=== PATIENT | male | born 1955 | race Caucasian/White ===

== ENCOUNTER 2018-01-06 19:43 | Observation (INO) | payer OTHER ==
[~2018-01-06] VITALS: Ht 182.9 cm; Wt 98.8 kg
[2018-01-06 20:01] LABS: BASOPHIL (%) 0.9 % (0-1); BASOPHIL COUNT 0.1 K/uL (0-0.1); EOSINOPHIL (%) 1.1 % (0-5); EOSINOPHIL COUNT 0.1 K/uL (0-0.3); HEMATOCRIT 36.8 % (38.0-50.0); HEMOGLOBIN 11.8 G/DL (12.5-16.6); IMMATURE GRANULOCYTE (%) 0.4 % (0.0-0.7); LYMPHOCYTE (%) 30.4 % (15-42); LYMPHOCYTE COUNT 1.7 K/uL (1.0-2.8); MCH 27.5 PG (29.0-34.0); MCHC 32.1 G/DL (30.0-36.0); MCV 85.8 FL (86-99); MONOCYTE (%) 13.2 % (3-12); MONOCYTE COUNT 0.7 K/uL (0-0.8); PLATELET COUNT 287 K/uL (156-360); RBC DIS.WIDTH-SD 59.7 % (39-53); RED BLOOD COUNT 4.29 M/uL (4.00-5.50); WHITE BLOOD COUNT 5.6 K/uL (4.1-10.2)
[2018-01-06 20:11] LABS: AMYLASE 73 IU/L (1-118); CHLORIDE 104 mEq/L (99-109); POTASSIUM 3.9 mEq/L (3.7-5.4); SODIUM 139 mEq/L (136-147)
[2018-01-06 20:12] LABS: GLUCOSE 118 mg/dL (70-99)
[2018-01-06 20:16] LABS: CREATININE 0.8 mg/dL (0.6-1.3); GFR ESTIMATE (CALCULATED) > 59 mL/min/ (58.99-99999); SERUM ETHYL ALCOHOL 385 mg/dL
[2018-01-06 20:17] LABS: UREA NITROGEN (BUN) 11 mg/dL (9-23)
[2018-01-06 20:19] LABS: LIPASE 61 U/L (1.0-51.0)
[2018-01-06 21:25] LABS: APPEARANCE CLEAR ((CLEAR)); BILIRUBIN NEGATIVE; BLOOD NEGATIVE; COLOR YELLOW ((YELLOW)); GLUCOSE (STRIP) NEGATIVE; KETONES NEGATIVE; LEUKOCYTES NEGATIVE; NITRITE NEGATIVE; PROTEIN (STRIP) NEGATIVE; SPECIFIC GRAVITY 1.006 (1.000-1.030); UCUL ADDED? NO; UROBILINOGEN 0.2 MG/DL (0.2-1.0)
[2018-01-06 21:59] LABS: AMPHETAMINE NEGATIVE (500 ng/mL); BARBITURATES NEGATIVE (200 ng/mL); BENZODIAZEPINES NEGATIVE (150 ng/mL); BUPRENORPHINE NEGATIVE (10 ng/mL); COCAINE NEGATIVE (150 ng/mL); METHADONE NEGATIVE (200 ng/mL); METHAMPHETAMINE NEGATIVE (500 ng/mL); OPIATES (MORPHINE) NEGATIVE (100 ng/mL); OXYCODONE NEGATIVE (100 ng/mL); PHENCYCLIDINE NEGATIVE (25 ng/mL); PROPOXYPHENE NEGATIVE (300 ng/mL); THC CANNABINOIDS NEGATIVE (50 ng/mL); TRICYCLIC ANTIDEPRESSANTS NEGATIVE (300 ng/mL)
[2018-01-06] MEDS ORDERED: LITE COAT ASPI325 M1 PO (23:08)
[2018-01-06] MEDS ORDERED: TYLENOL EXTRA500 MG PO (23:09)
[2018-01-06] MEDS ORDERED: OMEGA 3 500 SO1 EACH PO (23:10)
[2018-01-07 02:23] VITALS: BP 139/80
[2018-01-07 07:26] VITALS: BP 150/84
[2018-01-07] MEDS ORDERED: Thiamine,Vitamin B1 PO (11:59)
[2018-01-07] MEDS ORDERED: BACITRACIN28.4 GM TP (11:59)
[2018-01-07] MEDS ORDERED: THERAGRAN1 TABLET PO (11:59)
[2018-01-07] MEDS ORDERED: FOLIC ACID1 MG PO (11:59)
[2018-01-07 12:12] VITALS: BP 179/98
== END 2018-01-07 14:15 | disposition home or self-care (01) ==
LOC: TRA 19:43 → EDOF 01-07 00:37 → ENRESERV 01-07 00:42 → EDOF 01-07 00:56 → ENRESERV 01-07 01:07 → ENRESERVTM 01-07 01:55 → 4SOUTH 01-07 02:00 → ENPENDDIS 01-07 13:47 → 4SOUTH 01-07 14:15
PROVIDERS: Emergency Medicine
PROC: 3E0234Z Introduction of Serum, Toxoid and Vaccine into Muscle, Percutaneous Approach (ICD-10-PCS; principal; 2018-01-07)
PROC: 0HQ1XZZ Repair Face Skin, External Approach (ICD-10-PCS; principal; 2018-01-07)
DX: F10.129 Alcohol abuse with intoxication, unspecified (principal); Y90.8 Blood alcohol level of 240 mg/100 ml or more; R09.02 Hypoxemia; R00.0 Tachycardia, unspecified; S00.03XA Contusion of scalp, initial encounter; S01.81XA Laceration without foreign body of other part of head, initial encounter; S06.0X9A Concussion with loss of consciousness of unspecified duration, initial encounter; S80.212A Abrasion, left knee, initial encounter; S80.211A Abrasion, right knee, initial encounter; M19.90 Unspecified osteoarthritis, unspecified site; Z87.891 Personal history of nicotine dependence; Z23 Encounter for immunization; V49.88XA Car occupant (driver) (passenger) injured in other specified transport accidents, initial encounter; Y92.410 Unspecified street and highway as the place of occurrence of the external cause
CPT/HCPCS: 70450; 70486; 71260; 72125; 72129; 72132; 74177; 80048; 81003; 82150; 83690; 85025; 86850; 86900; 86901; 99281; 99285; G0378; G0480; J1630; J1885; J2405; J3411; J7030

== ENCOUNTER 2018-01-16 10:00 | Emergency (ER) | payer OTHER ==
[~2018-01-16] VITALS: Ht 185.4 cm; Wt 97.3 kg
[~2018-01-16 10:00] MED LIST: BACITRACIN28.4 GM TP; FOLIC ACID1 MG PO; LITE COAT ASPI325 M1 PO; OMEGA 3 500 SO1 EACH PO; THERAGRAN1 TABLET PO; TYLENOL EXTRA500 MG PO; Thiamine,Vitamin B1 PO
[2018-01-16 12:06] VITALS: BP 188/131
== END 2018-01-16 12:08 | disposition home or self-care (01) ==
LOC: EME 10:00
DX: I10 Essential (primary) hypertension (principal); S01.112D Laceration without foreign body of left eyelid and periocular area, subsequent encounter
CPT/HCPCS: 99281; 99283